=== PATIENT | female | born 1975 | race Caucasian/White ===

== ENCOUNTER 2021-09-05 14:43 | Emergency (ER) | payer BC ==
[~2021-09-05] VITALS: Ht 154.9 cm; Wt 89.8 kg
[2021-09-05 14:47] VITALS: BP 147/93
--- NOTE | 2021-09-05 14:51 | NUR ---
PT TAKEN TO C VIA W/C.
--- NOTE | 2021-09-05 15:15 | NUR ---
DR. JEFFERSON WITH PT FOR FURTHER EVALUATION.
--- NOTE | 2021-09-05 15:19 | NUR ---
Wilfredo dugan in ED - 09/05/21 at 1550 by [email or web address] PT TAKEN TO XR VIA W/C.
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
--- NOTE | 2021-09-05 15:51 | NUR ---
PT TAKEN TO XR VIA W/C.
--- NOTE | 2021-09-05 16:04 | NUR ---
PT TAKEN TO C VIA W/C.
[2021-09-05] MEDS ORDERED: CYCL-711 PO (16:37)
[2021-09-05] MEDS ORDERED: IBUP-2213 PO (16:37)
[2021-09-05 16:59] VITALS: BP 137/84
--- NOTE | 2021-09-05 17:00 | NUR ---
Patient discharged with v/s stable. Written and verbal after care instructions given FOR CONCUSSION AND MUSKULOKELETAL PAIN and explained. Patient alert, oriented and verbalized understanding of instructions. Ambulatory with steady gait. All questions addressed prior to discharge. ID band removed. Patient advised to follow up with PMD. Rx of FLEXERIL AND IBUPROFEN given. Patient educated on indication of medication including possible reaction and side effects. Opportunity to ask questions provided and answered.
== END 2021-09-05 17:00 | disposition home or self-care (01) ==
LOC: MED 14:43
DX: S16.1XXA Strain of muscle, fascia and tendon at neck level, initial encounter (principal); S09.90XA Unspecified injury of head, initial encounter; M79.602 Pain in left arm; Z79.899 Other long term (current) drug therapy; V89.2XXA Person injured in unspecified motor-vehicle accident, traffic, initial encounter; Y93.89 Activity, other specified; Y92.89 Other specified places as the place of occurrence of the external cause; Y99.8 Other external cause status
CPT/HCPCS: 73030; 73060; 73090; 99284; Q0092

== ENCOUNTER 2024-05-05 13:04 | Observation (INO) | payer BC, OTHER ==
[~2024-05-05] VITALS: Ht 154.9 cm; Wt 105.2 kg
[~2024-05-05 13:04] MED LIST: CYCL-711 PO; IBUP-2213 PO
[2024-05-05 13:25] VITALS: BP 129/80; PULSE 82; RESP 16; TEMP 97.5; O2SAT 99
[2024-05-05] MEDS: ASPIRIN 81 MG TAB.CHEW PO ONE (14:24)
[2024-05-05 14:55] LABS: BASOPHILS % (AUTO) 0.7 % (0.0-2.0); EOSINOPHILS # (AUTO) 0.7 K/uL (0-0.4); EOSINOPHILS % (AUTO) 9.5 % (0.0-4.0); HEMATOCRIT 40.2 % (36-48); HEMOGLOBIN 13.2 g/dL (12.0-16.0); LYMPHOCYTES # (AUTO) 1.9 K/uL (2.5-16.5); LYMPHOCYTES % (AUTO) 27.9 % (20.5-51.1); MEAN CORPUSCULAR HEMOGLOBIN 30 pg (27-31); MEAN CORPUSCULAR HGB CONC 33 g/dL (33-37); MEAN CORPUSCULAR VOLUME 91.7 fL (80-94); MONOCYTES # (AUTO) 0.7 K/uL (0.8-1.0); MONOCYTES % (AUTO) 9.9 % (1.7-9.3); NEUTROPHILS # (AUTO) 3.6 K/uL (1.8-7.7); PLATELET COUNT (AUTO) 325 K/uL (140-450); RED BLOOD CELL COUNT(AUTO) 4.38 MIL/uL (4.20-5.40); RED CELL DISTRIBUTION WIDTH 14.9 % (11.6-13.7); WHITE BLOOD COUNT (AUTO) 6.9 K/uL (4.8-10.8)
[2024-05-05 15:15] LABS: ANION GAP 14.4 (8-16); CALCIUM 9.1 mg/dL (8.5-10.1); CARBON DIOXIDE 23.9 mmol/L (21-32); CREATININE 0.9 mg/dL (0.6-1.3); POTASSIUM 4.3 mmol/L (3.5-5.1)
[2024-05-05 15:22] LABS: INR 0.95 (0.8-1.2); PARTIAL THROMBOPLASTIN TIME 25.2 secs (22-35.6)
[2024-05-05 15:24] LABS: ALANINE AMINOTRANSFERASE 39 U/L (12-78); ALBUMIN 3.3 g/dL (3.4-5.0); ALKALINE PHOSPHATASE 67 U/L (50-136); ASPARTATE AMINOTRANSFERASE 16 U/L (15-37); TOTAL BILIRUBIN 0.2 mg/dL (0.0-1.0); TOTAL PROTEIN, SERUM 7.7 g/dL (6.4-8.2)
[2024-05-05 16:18] LABS: APPEARANCE,URINE CLEAR (CLEAR); BILIRUBIN,URINE NEGATIVE (NEGATIVE); BLOOD, URINE TRACE-I (NEGATIVE); COLOR,URINE YELLOW (YELLOW); LEUKOCYTE ESTERASE ,URINE NEGATIVE (NEGATIVE); NITRITE, URINE NEGATIVE (NEGATIVE); PROTEIN,URINE NEGATIVE (NEGATIVE); UGLUCOSE NEGATIVE (NEGATIVE); UROBILINOGEN,URINE 0.2 EU/dL (0.2 - 1)
[2024-05-05] MEDS ORDERED: ACETAMINOPHEN 325 MG TAB PO PRN (16:45)
[2024-05-05] MEDS ORDERED: LORazepam 1 MG TAB PO PRN (16:45)
[2024-05-05] MEDS ORDERED: POTASSIUM CHLORIDE 10 MEQ TABER PO PRN (16:45)
[2024-05-05] MEDS ORDERED: ZOLPIDEM 5 MG TAB PO PRN (16:45)
[2024-05-05] MEDS ORDERED: HYDROcodone/APAP 5/325 MG 1 TAB TAB PO PRN (16:45)
[2024-05-05] MEDS ORDERED: ONDANSETRON 4 MG/2 ML VIAL IVP PRN (16:45)
[2024-05-05] MEDS ORDERED: KCL 20 MEQ IN 100 mL PREMIX 200 ML IV PRN (16:45)
[2024-05-05] MEDS ORDERED: MORPHINE SULFATE 4 MG/ML SYR IVP PRN (16:45)
[2024-05-05] MEDS ORDERED: KETOROLAC 30 MG/ML VIAL ONE (16:47)
[2024-05-05] MEDS: KETOROLAC 30 MG/ML VIAL IVP ONE (16:55)
[2024-05-05 21:16] VITALS: PULSE 91
[2024-05-05 21:20] VITALS: PULSE 72; RESP 18; O2SAT 99
[2024-05-06] VITALS: BP 99/57; PULSE 68; PULSE 69; RESP 18; TEMP 97.8; O2SAT 100
[2024-05-06 04:00] VITALS: BP 109/70; PULSE 82; PULSE 86; RESP 18; TEMP 97.3; O2SAT 98
[2024-05-06 07:21] LABS: BASOPHILS # (AUTO) 0.1 K/uL (0.00-0.22); BASOPHILS % (AUTO) 0.9 % (0.0-2.0); EOSINOPHILS # (AUTO) 0.6 K/uL (0-0.4); EOSINOPHILS % (AUTO) 10.2 % (0.0-4.0); HEMATOCRIT 37.8 % (36-48); HEMOGLOBIN 12.5 g/dL (12.0-16.0); LYMPHOCYTES # (AUTO) 1.9 K/uL (2.5-16.5); LYMPHOCYTES % (AUTO) 32.8 % (20.5-51.1); MEAN CORPUSCULAR HEMOGLOBIN 30 pg (27-31); MEAN CORPUSCULAR HGB CONC 33 g/dL (33-37); MEAN CORPUSCULAR VOLUME 91.1 fL (80-94); MONOCYTES # (AUTO) 0.6 K/uL (0.8-1.0); MONOCYTES % (AUTO) 9.4 % (1.7-9.3); NEUTROPHILS # (AUTO) 2.7 K/uL (1.8-7.7); NEUTROPHILS % (AUTO) 46.7 % (42.2-75.2); PLATELET COUNT (AUTO) 301 K/uL (140-450); RED BLOOD CELL COUNT(AUTO) 4.15 MIL/uL (4.20-5.40); RED CELL DISTRIBUTION WIDTH 14.5 % (11.6-13.7); WHITE BLOOD COUNT (AUTO) 5.9 K/uL (4.8-10.8)
[2024-05-06 07:46] LABS: ANION GAP 13.5 (8-16); CALCIUM 8.5 mg/dL (8.5-10.1); CARBON DIOXIDE 23.5 mmol/L (21-32); CREATININE 0.8 mg/dL (0.6-1.3); TOTAL BILIRUBIN 0.4 mg/dL (0.0-1.0)
[2024-05-06 08:00] VITALS: BP 133/70; PULSE 82; PULSE 90; RESP 18; TEMP 97.3; O2SAT 98
[2024-05-06 12:00] VITALS: BP 128/73; PULSE 79; PULSE 80; RESP 18; TEMP 97.5; O2SAT 98
[2024-05-06 15:00] VITALS: BP 133/70; PULSE 82; RESP 18; TEMP 97.3
== END 2024-05-06 16:30 | disposition home or self-care (01) ==
LOC: MED 13:04 → MTU 16:41
PROVIDERS: ADMIT Internal Medicine; ATTEND Internal Medicine
DX: R07.89 Other chest pain (principal); I20.0 Unstable angina; E44.0 Moderate protein-calorie malnutrition; R94.31 Abnormal electrocardiogram [ECG] [EKG]; R42 Dizziness and giddiness; Z68.41 Body mass index [BMI] 40.0-44.9, adult; Z79.899 Other long term (current) drug therapy
CPT/HCPCS: 36415; 71045; 80048; 80053; 80076; 81003; 83880; 84484; 85025; 85379; 85610; 85730; 87081; 93005; 96372; 96374; 99285; G0378; J1644; J1885; Q0092